=== PATIENT | male | born 1945 | race Caucasian/White ===

== ENCOUNTER → 2024-02-06 13:40 | Outpatient (REF) | payer OTHER, SELFPAY | LOC: HWRAD 13:40 | PROVIDERS: ATTENDING PHYSICIAN Nurse Practitioner Family | DX: R30.0 Dysuria (principal); N20.0 Calculus of kidney | CPT/HCPCS: 74176 ==

== ENCOUNTER → 2024-10-23 09:39 | Outpatient (REF) | payer OTHER, SELFPAY | LOC: REG 09:39 | PROVIDERS: ATTENDING PHYSICIAN Nurse Practitioner Family; FAMILY PHYSICIAN Family Medicine | DX: M25.531 Pain in right wrist (principal) | CPT/HCPCS: 73110 ==